=== PATIENT | male | born 1950 | race Caucasian/White ===

== ENCOUNTER → 2021-01-01 16:12 | Outpatient (REF) | payer MEDICARE, SELFPAY | LOC: ANHLAB 16:12 | PROVIDERS: PCP Internal Medicine; Visit Provider Nurse Practitioner | DX: L72.0 Epidermal cyst (principal) | CPT/HCPCS: 88304 ==

== ENCOUNTER 2021-05-31 13:47 | Emergency (ER) | payer MEDICARE, SELFPAY ==
--- NOTE | 2021-05-31 13:50 | ED.LOWEXIN ---
HPI - Extremity Injury (Lower) General Chief Complaint: Extremity Injury, Lower Stated Complaint: Leg Cramp Time Seen by Provider: 05/31/21 13:49 Source: patient and RN notes reviewed History of Present Illness HPI Narrative: Patient is a 70-year-old male who presents the urgent care with complaints of right lower leg cramping. Patient states that it started early this morning around 8 AM and he has been unable to relieve the cramping. Patient states that he has been doing a lot of outside yard work and thought maybe he just sweat a lot causing his cramping . Patient has done nothing for the pain other than trying to rub the area out and stretch. Denies of any shortness of breath or chest pain. No other acute complaints. No acute distress noted. Patient aware of the plan of care. Some parts of this dictation were generated by voice recognition software and may contain typographical and/or grammatical inaccuracies. Related Data Home Medications Medication Instructions Recorded Confirmed aspirin 325 mg tablet 325 mg PO DAILY 10/20/20 04/23/21 multivitamin 1 tablet PO DAILY 10/20/20 04/23/21 Allergies Allergy/AdvReac Type Severity Reaction Status Date / Time No Known Allergies Allergy Verified 04/23/21 12:59 Review of Systems Review of Systems: CONSTITUTIONAL: Denies fever, chills, or sweats. EYES: Denies visual changes, redness, or discharge. ENT: Denies rhinorrhea, congestion, sore throat, or otalgia. CARDIOVASCULAR: Denies chest pain, palpitations, or edema. RESPIRATORY: Denies cough or dyspnea. GASTROINTESTINAL: Denies abdominal pain, nausea, vomiting, or diarrhea. GENITOURINARY: Denies dysuria or hematuria. SKIN: Denies rash or itching. MUSCULOSKELETAL: Denies back pain, joint pain, or myalgia. Reports of right lower leg muscle spasms NEUROLOGIC: Denies headache, numbness, or weakness. All other systems reviewed are negative, except as documented in HPI. [facility] Past Medical History Medical History Cancer stomach cancer, per patient Treatment completed with Dr. Shekhar [place] Hypertension Screening for colon cancer Screening for lipid disorders Screening for prostate cancer Surgical History Surgical History Hx of cholecystectomy 2010 Family History Family History Father Family history of lung cancer Mother , CEBRAL HEMERIGY Cerebrovascular accident cerebral hemmorhage Social History Social History (Updated 04/23/21 @ 13:00 by Shannan Borges [facility] [address]) Smoking packs per day: 0.5 Smoking cigarettes per day: 10.0 Years smoked: 5 Smoking pack-years: 2.50 Smoking status: Former smoker Second hand tobacco smoke exposure: Yes Smoking end date: 11/03/79 Alcohol intake: never Comments At the time of my signature, I reviewed and agree with the nursing past medical, surgical, social, and family history. There is no relevant family history pertinent to the patient complaint. Exam Narrative: GENERAL: This is a well-nourished, well-developed patient, in no apparent distress. HEAD: normocephalic, atraumatic. EYES: PERRL. Sclera clear/white. Vision is grossly intact. EARS: External ears normal NOSE: External nose normal with no obvious nasal discharge, nares without redness, no rhinorrhea. THROAT: Mucous membranes moist NECK: Neck supple, non-tender without lymphadenopathy, masses or thyromegaly. CARDIOVASCULAR: Regular rate and rhythm RESPIRATORY: Clear to auscultation. Breath sounds equal bilaterally. No wheezes, rales, or rhonchi. SKIN: warm, intact with no suspicious lesions or rash, good texture and turgor. NEURO: awake, alert, and oriented to person, place and time. There were no obvious focal neurologic abnormalities. EXTREMITIES: No clubbing, cyanosis, or edema. No joint tenderness, effus
[2021-05-31 13:55] VITALS: BP 137/92; PULSE 78; RESP 16; TEMP 36.3; O2SAT 98
== END 2021-05-31 14:10 | disposition home or self-care (01) ==
PROVIDERS: Emergency Provider Nurse Practitioner Family; PCP Internal Medicine
DX: R25.2 Cramp and spasm (principal); Z79.82 Long term (current) use of aspirin; I10 Essential (primary) hypertension; Z85.028 Personal history of other malignant neoplasm of stomach; F17.210 Nicotine dependence, cigarettes, uncomplicated
CPT/HCPCS: 99213; G0463

== ENCOUNTER → 2021-10-31 10:38 | Outpatient (CLI) | payer MEDICARE, SELFPAY ==
[2021-10-31 13:26] LABS: Influenza Control Positive
[2021-10-31 21:06] LABS: SARS-CoV-2 RNA PCR Negative
== END ==
PROVIDERS: PCP Internal Medicine; Visit Provider Nurse Practitioner
DX: Z20.822 Contact with and (suspected) exposure to COVID-19 (principal)
CPT/HCPCS: 87804; C9803; U0003; U0005

== ENCOUNTER 2024-10-08 11:31 | Outpatient (CLI) | payer MEDICARE, SELFPAY ==
--- NOTE | ~2024-10-08 | US_ITS ---
EXAMINATION: US venous doppler [facility] DATE: 10/08/2024 12:15 INDICATION: Left lower limb pain and swelling. TECHNIQUE: Grayscale ultrasound images without and with compression and Doppler ultrasound images of the left lower extremity veins were obtained. COMPARISON: Ultrasound 07/06/2015 FINDINGS: The visualized portions of left common femoral vein and greater saphenous vein outflow are patent. Th ere is thrombus in left profunda (deep) femoral vein, femoral vein, popliteal vein, peroneal veins, p osterior tibial veins, and gastrocnemius veins. IMPRESSION: 1. Extensive acute deep vein thrombosis in left lower limb. Reviewed, dictated and finalized at location A. IRL
== END 2024-10-08 11:32 | disposition home or self-care (01) ==
PROVIDERS: PCP Nurse Practitioner; Visit Provider Nurse Practitioner
DX: M79.89 Other specified soft tissue disorders (principal); I82.402 Acute embolism and thrombosis of unspecified deep veins of left lower extremity
CPT/HCPCS: 93971

== ENCOUNTER 2025-06-01 17:06 | Outpatient (CLI) | payer MEDICARE, SELFPAY ==
--- NOTE | ~2025-06-01 | XR_ITS ---
XR heel LT min 2V 06/01/2025 17:21 Indication: Left foot pain Procedure: 2 views left heel/os calcis Comparison: No prior studies for comparison. Findings: There are large bulky calcaneal enthesophytes. No fracture, subluxation or dislocation. No significant soft tissue abnormality. Impression: 1: Large calcaneal enthesophytes. Reviewed, dictated and finalized at location A. Impression: 1: Large calcaneal enthesophytes.
--- OUTSIDE RECORDS SUMMARY | 2025-06-01 17:10 | XMS_ITS | Continuity of Care Document ---
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 Name Role Phone Angel Johnson Unavailable Unavailable Procedures Procedure Date Post-op Follow-up Visit Post-op Follow-up Visit Remove Cataract, Insert Lens Office/outpatient Visit, Est [facility]-Professional Post-op Follow-up Visit Post-op Follow-up Visit Remove Cataract, Insert Lens Eye Exam, New Patient [facility] Advance Directives Directive Yes / No Effective Date File Name No Information Encounters Encounter Description Practice Location Reason(s) For Visit Diagnoses Date Provider Providers Copied on Encounter Formerly [facility], [address] [place] [address] [address], [place], [place], [id number], tel:[phone] [facility] No Information [address]iz. [address] , [address], [place], [place], [facility], . tel:[phone] Referring Provider: Lance Jackson, [address], [place], [address]. tel:[phone] Formerly [facility], [address] [place] [address] [address], [place], [place], [id number], tel:[phone] [facility] No Information 0-[address] Alex Ortiz. [address] , [address], [place], [address], [place]. tel:[phone] Referring Provider: Lance Jackson, [address], [place], [address]. tel:[phone] [facility], [address], [place], [place], [id number], [place] tel:[phone] [facility] No Information 7 Doisy Edward. [address] , [address], [place], [place], [facility], [place]. tel:[phone] Referring Provider: Lance Jackson, [address], [place], [address]. tel:[phone] Office/outpat ient Visit, [facility], [address], [place], [place], [address], [place] tel:[phone] [facility] No Information 7 Doisy Edward. [address] , [address], [place], [address], [place]. tel:[phone] Referring Provider: Lance Jackson, [address], [place], [address]. tel:[phone] [facility], [address], [place], [place], [id number], [place] tel:[phone] [facility] No Information 7 Doisy Edward. [address] , [address], [place], [address], [place]. tel:[phone] Referring Provider: Lance Jackson, [address], [place], [address]. tel:[phone] [facility], [address], [place], [place], [id number], [place] tel:[phone] [facility] No Information 7 Doisy Edward. [address] , [address], [place], [address], [place]. tel:[phone] Referring Provider: Lance Jackson, [address], [place], [address]. tel:[phone] [facility], [address], [place], [place], [id number], tel:[phone] [facility] No Information 7 [facility] [place]. [address] , [address], [place], [address], [place]. tel:[phone] Referring Provider: Lance Jackson, [address] [facility], [place], [address]. tel:[phone] [facility], [address], [place], [place], [id number], [place] tel:[phone] [facility] No Information 7 [facility] [place]. [address] , [address], [place], [address], [place]. tel:[phone] Referring Provider: Lance Jackson, [address], [place], [address]. tel:[phone] Family History Family Member Type Diagnosis Age At Onset No Information Payers Payer name Insurance type Covered libertarian ID Authoriza tion(s) No Information Social History Type Description Quantity Date Captured Comments Sex Male Smoking Status No Information Chief Complaint And Reason For Visit No Information Reason For Referral Reason For Referral No Information History Of Present Illness Encounter Date Complaint History Of Prese nt Illness No Information Functional Status Date Functional Assessmen t No Information Instructions Date Instruction Additional Infor mation No Information Assessments Type Assessment Date No Information Patient Care Teams Name Effective Dates (start - stop) Status Members No Information
== END 2025-06-01 17:07 | disposition home or self-care (01) ==
PROVIDERS: PCP Nurse Practitioner; Visit Provider Nurse Practitioner
DX: M79.672 Pain in left foot (principal); M77.32 Calcaneal spur, left foot
CPT/HCPCS: 73650